=== PATIENT | male | born 1975 | race Caucasian/White ===

== ENCOUNTER 2022-07-18 10:58 | Emergency (ER) | payer MEDICAID ==
[~2022-07-18] VITALS: Ht 172.7 cm; Wt 95.3 kg
[2022-07-18 11:25] VITALS: BP_SYST 130
--- NOTE | 2022-07-18 11:25 | NUR ---
Patient triaged and placed in waiting room. VSS and patient appears in no acute distress at this time. Accompanied by SELF, awaiting available bed, and MD notified of need for MSE.
--- NOTE | 2022-07-18 13:04 | NUR ---
Placed in room 4 . Placed on senior designer/art director, blood pressure machine and pulse oximeter. To gown for exam. Side rails up. Report given to RUBINA ELAINE.
--- NOTE | 2022-07-18 13:51 | NUR ---
Patient awaiting abcess treatment by MD. patient given water per request and patient states no other issues at this time.
[2022-07-18] MEDS ORDERED: LIDOCAINE 1% 10 MG/ML, 20 ML MDV INJ ONE (14:15)
[2022-07-18] MEDS ORDERED: DIPHTH,PERTUSS(ACELL),TET VAC 0.5 ML VIAL (Tdap) I.M. ONE (14:15)
[2022-07-18] MEDS ORDERED: BACITRACIN 1 GM OINT TP ONE (14:15)
[2022-07-18] MEDS ORDERED: CLIN-142 PO (14:29)
[2022-07-18] MEDS ORDERED: IBUP-1971 PO (14:29)
[2022-07-18 15:20] VITALS: BP_SYST 110
--- NOTE | 2022-07-18 15:24 | NUR ---
Patient given written and verbal discharge instructions and verbalizes understanding. ER MD discussed with patient the results and treatment provided. Patient in stable condition. ID arm band removed. Clindamycin and Ibuprfen given. Patient educated on pain management and to follow up with PMD. Pain Scale 5/10. Opportunity for questions provided and answered. Medication side effect fact sheet provided. RN escorted the patient to the [facility] [place] and gave discharge documents to the facility septic pump truck driver.
== END 2022-07-18 15:20 | disposition home or self-care (01) ==
LOC: SED 10:58
DX: L02.416 Cutaneous abscess of left lower limb (principal); Z79.899 Other long term (current) drug therapy
CPT/HCPCS: 99283; 10060; 90715; 90471; J2001